=== PATIENT | female | born 1955 | race Caucasian/White ===

== ENCOUNTER 2020-05-10 12:00 | Inpatient (IN) | payer OTHER ==
[~2020-05-10] VITALS: Ht 172.7 cm; Wt 84.8 kg
[2020-05-11] MEDS ORDERED: OXYCODONE HCL10 MG PO ×3 (11:06→11:09)
[2020-05-11] MEDS ORDERED: SENNA PLUS TAB1 EACH PO (11:07)
[2020-05-11] MEDS ORDERED: CALCIUM + VITA1 EACH PO (11:12)
[2020-05-11] MEDS ORDERED: HYDRALAZINE 10M10 MG PO (11:13)
[2020-05-11] MEDS ORDERED: CARVEDILOL12.5 MG PO (11:15)
[2020-05-11] MEDS ORDERED: XANAX1 MG PO (11:17)
[2020-05-11] MEDS ORDERED: CARVEDILOL25 MG PO (11:18)
[2020-05-11] MEDS ORDERED: LOVENOX40 MG/0.4 SUBQ (11:20)
[2020-05-11] MEDS ORDERED: NEURONTIN 400M400 M2 PO (11:22)
[2020-05-11] MEDS ORDERED: BACITRACIN3.5 GM TOP (11:24)
[2020-05-11] MEDS ORDERED: MIRALAX119 GM PO (11:24)
[2020-05-11] MEDS ORDERED: KETAMINE IV (11:28)
[2020-05-11] MEDS ORDERED: ZOFRAN ODT4 MG PO (11:32)
[2020-05-11] MEDS ORDERED: NON-ASPIRIN PA500 MG PO (11:32)
[2020-05-11] MEDS ORDERED: VITAMIN C500 M2 PO (11:59)
[2020-05-11 12:00] VITALS: BP 112/71
[2020-05-11] MEDS ORDERED: VITAMIN D21250 MC1 PO (12:01)
[2020-05-11] MEDS ORDERED: MUCINEX600 MG PO (12:02)
[2020-05-11] MEDS ORDERED: IPRAT-ALBUT 0.5-3 ML INH (12:05)
[2020-05-11] MEDS ORDERED: LISINOPRIL2.5 MG PO (12:06)
[2020-05-11] MEDS ORDERED: MAGIC MOUTHWASH SWISH&SPIT (12:10)
--- NOTE | 2020-05-11 14:30 | NUR ---
chart review. cm notified by bedside nurse that pt would like to talk. cm visited with pt at bedside, cm wear own mask and goggles during visit. pt stated " i was told social work will be able to get letter i need faxed to court saying in am in hospital here for court, fax # [phone] sent to mohit [address] [place] [address]. intro to cm and team meeting. pt is a & o x 3 with some forgetfulness. she reports " before hospital lived alone in house but during covid i stayed [place] son in [place] apartment got stuck there. have cane if needed when back hurts. manage own medication and drive vehicle. no hh or rehab in past"/brian. will cont following as needed for dc needs.
[2020-05-11 15:58] LABS: URINE BILIRUBIN NEGATIVE (Negative); URINE BLOOD TRACE (Negative); URINE CLARITY CLEAR; URINE COLOR YELLOW; URINE GLUCOSE-RANDOM* NEGATIVE (Negative); URINE KETONES NEGATIVE (Negative); URINE PROTEIN (DIPSTICK) NEGATIVE (Negative)
[2020-05-11 16:03] LABS: URINE LEUKOCYTES-REFLEX 3+ (Negative); URINE NITRITE-REFLEX POSITIVE (Negative)
[2020-05-11 16:11] LABS: SQUAMOUS 0-3 Few /LPF (0-3)
[2020-05-11 16:12] LABS: BACTERIA-REFLEX >30 Many /HPF (None Seen); CASTS None Seen /LPF (None Seen); CRYSTALS None Seen /LPF (None Seen); URINE RBC None Seen /HPF (0-2); URINE WBC-REFLEX 6-15 Few /HPF (0-5)
--- NOTE | 2020-05-11 16:23 | NUR ---
PT ARRIVED AT 1345. ALERT AND ORIENTED *4 BUT FORGETFUL. VITALS REMAIN STABLE. C/O PAIN IN BLE, BUE, ORAL AND NASAL, PAIN MEDICATION ADMINISTERED NEEDED. PT HAS MILD BLE EXTREMITIES ELEVATED. ORAL SORES NOTED AND A BROKEN MOLAR THAT PT STATED THAT ITS BE SCRATCHING HER TONGUE. BRUISING NOTED ON LEFT SHOULDER, LEFT INNER ARM AND RIGHT SIDE OF THE FOREHEAD. PT VOIDING PER BEDPAN, URINE IS YELLOW WITH A STRONG FOUL ODOR, UA COLLECTED (SEE LABS FOR RESULTS). PT REPOSITIONED Q2H. ON BEDREST UNTIL THERAPY EVALUATION TOMORROW. Q1H VISUAL CHECKS. CALL LIGHT WITHIN REACH. FALL PRECAUTIONS IN PLACE
[2020-05-11 19:35] VITALS: BP 102/57
[2020-05-12 06:10] LABS: CALCIUM 8.7 mg/dL (8.5-10.1); CREATININE 0.9 mg/dL (0.6-1.0); POTASSIUM 4.3 mmol/L (3.5-5.1)
[2020-05-12 06:16] LABS: HEMATOCRIT 27.6 % (37.0-47.0); HEMOGLOBIN 9.3 gm/dL (12.0-15.0); MCH 31.8 pg (26.0-34.0); MCHC 33.6 g/dL (28.0-37.0); MCV 94.7 fL (80.0-100.0); RBC 2.91 mil/uL (4.20-5.00); RDW 13.7 % (10.5-14.5); WBC 9.8 thou/uL (4.0-11.0)
[2020-05-12 08:30] VITALS: BP 160/87
[2020-05-12 09:27] LABS: FOLIC ACID 3.8 ng/mL (8.6-58.9)
--- NOTE | 2020-05-12 13:53 | NUR ---
note for [facility] completed and faxed per pt request. copy provided for pt.
[2020-05-12 20:00] VITALS: BP 152/78
--- NOTE | 2020-05-13 03:12 | NUR ---
PATIENT ENCOURAGED TO MOVE IN BED, LIMITED BY PAIN. DECLINED OFFER TO ELEVATE LEGS THIS ALSO INCREASES PAIN. TRIED ICE TO KNEECAPS, NO NOTICEABLE DECREASE IN PAIN. TYLENOL ROUTINELY SCHEDULED PLUS PRN OXYCONTIN AND FLEXERIL GIVEN WITH PAIN STAYING AT 8 OR 9. PATIENT PLACED EXTERNAL CATHETER AFTER TUBING ATTACHED TO WALL SUCTION.
[2020-05-13 04:45] VITALS: BP 131/77
--- NOTE | 2020-05-13 13:44 | NUR ---
ASSUMED CARES AT 0700. PT AWAKE, ALERT AND ORIENTED*4. VITALS REMAIN STABLE. C/O PAIN IN BLE, BUE, ORAL AND NASAL, PAIN MANAGEMENT CONTINUED ORDERED. ABDOMEN IS FIRM AND DISTENDED, LAST BM 05/08, BS HYPOACTIVE. LAXATIVES AND STOOL SOFTERNORS ADMINISTERED. BRUISING REMAINS ON LEFT SHOULDER. PT VOIDING PER BEDPAN, EXTERNAL CATHETER DC'D THIS AM. UP WITH 1 SLIDEBOARD TRANSFERS AND TOLERATED WELL. PARTICIPATED WELL IN ALL THERAPIES. Q1H VISUAL CHECKS. CALL LIGHT WITHIN REACH. FALL PRECAUTIONS IN PLACE
[2020-05-13 20:19] VITALS: BP 127/79
--- NOTE | 2020-05-14 02:37 | NUR ---
EXTERNAL CATHETER OVERNIGHT PER PATIENT REQUEST. XANAX AND FLEXERIL WITH PRN PAIN MED AT HS AND PATIENT HAS BEEN SLEEPING MOST OF THE TIME SINCE THEN. CURIOUS ABOUT WHY HER HANDS HURT. DECLINING OFFERS TO ASSIST HER WITH REPOSITIONING. STATES SHE IS DOING WELL WITH SLIDE BOARD WITH THERAPY
[2020-05-14 08:00] VITALS: BP 139/76
--- NOTE | 2020-05-14 14:21 | NUR ---
ASSUMED CARES AT 0700. PT AWAKE, ALERT AND ORIENTED*4. C/O PAIN IN BLE AND BUE, ORAL AND NASAL. PAIN MEDICATIONS ADDMINISTERED NEEDED. VITALS REMAIN STABLE. PT UP WITH 1 MIN ASSIST AND SLIDEBOARD AND TOLERATED WELL. TOOK A SHOWER TODAY WITH OT WHICH SHE INITIATED AND STATED THAT IT FELT GOOD. BOWEL PROGRAM CONTINUED AND PT HAD A SMALL HARD BM, PASSING FLATUS. BELLY REMAINS FIRM AND DISTENDED, WILL CONTINUE TO MONITOR AND TREAT. PT EATING 100% OF HER MEALS AND TOLERATING WELL. DENIES N&V. Q1H VISUAL CHECKS. CALL LIGHT WITHIN REACH. FALL PRECAUTIONS IN PLACE
[2020-05-14 20:00] VITALS: BP 131/64
--- NOTE | 2020-05-15 00:44 | NUR ---
assumed care at approx 1900 evening 05/14. pt lying in bed with head of bed elevated at change of shift. pt alert and oriented x4, appropriate and cooperative. pt assisted with use of bedpan at hs voiding large amt urine. pt took hs meds with water tolerating well. pt appears to be sleeping soundly with hourly rounding checks. bed alarm on and call light in reach. will continue to monitor.
[2020-05-15 06:02] LABS: ABSOLUTE RETIC COUNT 0.1142 10^6/uL; OBSERVED RETIC COUNT 4.09 % (0.6-2.6)
[2020-05-15 06:11] LABS: HEMOGLOBIN 9.1 gm/dL (12.0-15.0); MCH 32.1 pg (26.0-34.0); MCHC 33.5 g/dL (28.0-37.0); MCV 95.7 fL (80.0-100.0); PLATELET COUNT 590 thou/uL (150-400); RBC 2.82 mil/uL (4.20-5.00); RDW 14.2 % (10.5-14.5); WBC 9.1 thou/uL (4.0-11.0)
[2020-05-15 06:23] LABS: % SATURATION 18 % (20-39); IRON 48 ug/dL (50-170); TIBC 260 ug/dL (250-450)
[2020-05-15 06:29] LABS: ALBUMIN 2.6 g/dL (3.4-5.0); CALCIUM 8.5 mg/dL (8.5-10.1); CREATININE 0.9 mg/dL (0.6-1.0); MAGNESIUM 2.3 mg/dL (1.8-2.4); PHOSPHORUS 4.7 mg/dL (2.5-4.9); TOTAL BILIRUBIN 0.2 mg/dL (0.2-1.0); TOTAL PROTEIN 5.7 g/dL (6.4-8.2)
[2020-05-15 09:45] VITALS: BP 129/72
[2020-05-15 10:23] LABS: ABSOLUTE NEUTROPHILS 5.1 thou/uL (1.4-8.2)
[2020-05-15 10:24] LABS: PLATELET ESTIMATE INCREASED
[2020-05-15 10:30] VITALS: BP 141/54
--- NOTE | 2020-05-15 16:36 | NUR ---
ASSUMED CARE AROUND 0700 PT A&O X 4, NO ACUTE DISTRESS DURING SHIFT. VSS, O2 ON RA. PT RECEIVED OXY-IR Q4H PRN FOR PAIN WITH SOME RELIEF. NON WEIGHT BEARING TO RLE CONTINUED. CONTINENT OF B&B USES BEDPAN. PT RESTING IN BED, CALL LIGHT WITHIN REACH, WILL CONTINUE TO MONITOR PER POC.
[2020-05-15 20:05] VITALS: BP 148/80
--- NOTE | 2020-05-16 00:35 | NUR ---
Assumed care of patient this pm shift. Patient is alert and oriented x4. Patient is in good spirits, calm and cooperative. Patient states her pain level is an 8 if she is perfectly still. Patient states that it is difficult to cough due to the pain in her ribs. Patient takes medications whole with fluids. Patients assessment shows clear breath sounds diminished in the bases, active bowel sounds, and s1 s2 heard with auscultation. Patient given medication to help her pain. We will continue to monitor per hospital protocol.
[2020-05-16 08:20] VITALS: BP 150/103
--- NOTE | 2020-05-16 16:34 | NUR ---
ASSUMED CARE AROUND 0700 PT A&O X 4 NO ACUTE DISTRESS DURING SHIFT. VSS O2 ON RA. PT CONTINUES TO HAVE PAIN RECEIVED PRN OXYIR WITH ADEQUATE RELIEF. NON WEIGHT BEARING TO RLE CONTINUED. CONTINENT OF B&B USES BEDPAN NO BM TODAY BUT ON AMAIRANI LAXATIVES. PT RESTING IN BED, CALL LIGHT WITHIN REACH, WILL CONTINUE TO MONITOR PER POC.
[2020-05-16 19:55] VITALS: BP 139/76
--- NOTE | 2020-05-17 03:26 | NUR ---
ASSUMED CARE AT APPROX 1900 EVENING 05/16. PT ALERT AND ORIENTED X4, APPROPRIATE AND COOPERATIVE. PT STATED SHE DID A LOT WITH THERAPY AND WAS VERY TIRED. PT TOOK HS MEDS WITH WATER TOLERATING WELL. PT REQUESTED TO HAVE EXTERNAL CATHETER AT NIGHTTIME. PT VOIDS LARGE AMT URINE. PT APPEARS TO BE SLEEPING SOUNDLY WITH HOURLY ROUNDING CHECKS. BED ALARM ON AND CALL LIGHT IN REACH. WILL CONTINUE TO MONITOR.
[2020-05-17 08:15] VITALS: BP 134/65
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
--- NOTE | 2020-05-17 12:50 | NUR ---
team meeting, recommendation: dc on , nurse only. will need dme drop arm bsc, transfer board and wheel chair.
--- NOTE | 2020-05-17 16:27 | NUR ---
1615 RESUMMED CARE FROM OVERNIGHT SHIFT THIS AM PATIENT IN ROOM WATCHING TV. PATIENT ATE BREAKFAST TOOK MEDICATION WITHOUT INCIDENCE; PATIENTS ABDOMEN SOFT ROUND BOWEL SOUNDS PRESENT. PATIENTS LUNGS CLEAR PATIENT WORKED WITH PT TODAY DID WELL WITH SLIDING BOARD TO TRANSFER TO BED. PATIENT COMPLAINED OF PAIN AND WAS GIVEN OXYCODONE 15 MG. DURING TEAM MEETING IT CAME TO OUR ATTENTION PATIENT MED SEEKS; AND HER AND HER SON WHO LIVES WITH HER GOES TO EMERGENCY ROOMS TO GET NARCOTICS. A HOT PACK WAS ORDERED FOR PATIENTS SHOULDER DONE BY PT. PATIENT COOPERATIVE UPON DISCHARGE PATIENT WILL HAVE W/C AND SLIDING BOARD TO HELP WITH TRANSFER AND HOME HEALTH NURSE. WILL CONTINUE TO MONITOR PATIENT FOR SAFETY AND MEDICAL ISSUES.
[2020-05-17 20:09] VITALS: BP 132/67
--- NOTE | 2020-05-18 02:02 | NUR ---
assumed care at approx 1900 evening 05/17. pt alert and oriented x4, pleasant and cooperative. pt stated she had a good day with therapy and feels like she is making progress with her therapy. pt using external catheter at night with large amt urine in canister. pt took hs meds with water tolerating well. pt appears to be sleeping soundly with hourly rounding checks. bed alarm on and call light in reach. will continue to monitor.
[2020-05-18 08:59] VITALS: BP 120/75
--- NOTE | 2020-05-18 11:10 | NUR ---
ASSUMED CARE AROUND 0700 PT A&O X 4 NO ACUTE DISTRESS DURING SHIFT VSS, O2 ON RA. PT CONTINUES TO HAVE GEN PAIN 7/10 RELIEVED WITH PRN OXY WITH ADEQUATE RELIEF. NON WEIGHT BEARING TO RLE CONTINUED. CONTINENT OF B&B, USES BEDPAN. PT SITTING IN BED, CALL LIGHT WITHIN REACH, WILL CONTINUE TO MONITOR PER POC.
[2020-05-18 19:35] VITALS: BP 134/72
--- NOTE | 2020-05-19 02:31 | NUR ---
TAKING PAIN PILLS EVERY 4 HOURS WELL ZANAFLEX SCHEDULED PLUS XANAX FOR ANXIETY AT HS. USING EXTERNAL CATHETER AT HS TO VOID LARGE AMOUNTS, DRINKS WATER AND A LITTLE SODA. SWISH AND SPIT MAGIC MOUTHWASH Q 6 HOURS WHILE AWAKE TO MINIMIZE FACIAL PAIN.
[2020-05-19 10:20] VITALS: BP 142/75
--- NOTE | 2020-05-19 15:59 | NUR ---
ASSUMED CARE OF PT AT 0720. PT IS A&OX4. IS ON ROOM AIR. IS STABLE. REPORTS PAIN IN BILAT KNEES, FACE & BACK THAT IS BEING MANAGED WITH PAIN MEDS & OTHER THERAPUETIC TECHNIQUES. PT IS UP WITH 1 ASSIST, SLIDE BOARD TRANSFER, & GB. FALL PRECAUTIONS & HOURLY ROUNDING CONTINUED THIS SHIFT. LABS & VITALS REVIEWED. WILL CONTINUE TO MONITOR. PT IS CURRENTLY WORKING WITH PHYSICAL THERAPY.
[2020-05-19 19:45] VITALS: BP 142/84
--- NOTE | 2020-05-20 00:41 | NUR ---
PT ALERT AND ORIENTED X 4. C/O PAIN IN KNEES AND LEFT SHOULDER. MEDICATED FOR PAIN ORDERED. EXTERNAL CATHETER INTACT. BED ALARM ON FOR SAFETY. PT APPEARS TO BE SLEEPING ON HOURLY ROUNDS.
[2020-05-20 06:20] LABS: ABSOLUTE NEUTROPHILS 4.1 thou/uL (1.4-8.2); BASOPHILS 0.4 % (0.0-2.0); EOSINOPHILS 3.2 % (0.0-3.0); HEMATOCRIT 29.7 % (37.0-47.0); HEMOGLOBIN 9.9 gm/dL (12.0-15.0); LYMPHOCYTES 31.6 % (24.0-44.0); MCH 31.9 pg (26.0-34.0); MCHC 33.3 g/dL (28.0-37.0); MCV 95.9 fL (80.0-100.0); MONOCYTES 8.2 % (1.0-8.0); PLATELET COUNT 525 thou/uL (150-400); POLYS 56.6 % (36.0-66.0); RDW 15.1 % (10.5-14.5); WBC 7.2 thou/uL (4.0-11.0)
[2020-05-20 06:42] LABS: ALBUMIN 2.8 g/dL (3.4-5.0); CALCIUM 8.7 mg/dL (8.5-10.1); CREATININE 0.8 mg/dL (0.6-1.0); MAGNESIUM 2.1 mg/dL (1.8-2.4); POTASSIUM 3.8 mmol/L (3.5-5.1); TOTAL BILIRUBIN 0.3 mg/dL (0.2-1.0); TOTAL PROTEIN 6.5 g/dL (6.4-8.2)
[2020-05-20 08:50] VITALS: BP 134/55
--- NOTE | 2020-05-20 12:11 | NUR ---
branden spoke with harsha with [facility], called to get auth for dme needs at dc. auth # [id number] for drop arm bedside commode. pt will also need manual wheel chair and transfer board. will cont following as needed for dc needs. provider plus notified.
--- NOTE | 2020-05-20 14:29 | NUR ---
ASSUMED CARES AT 0700. PT AWAKE, ALERT AND ORIENTED*4. C/O RACHANA LOWER EXTREMITY AND SHOULDER PAIN, PAIN MEDICATION AND MUSCLE RELAXER ADMINISTERED NEEDED. VITALS REMAIN STABLE. EXTERNAL FEMALE CATHETER DC'D THIS AM TO ALLOW PT TO PARTICIPATE IN THERAPY. PT REMAINS NWB RLE, UP WITH 1 CONTACT, SLIDEBOARD AND GB AND TOLERATED WELL. Q1H VISUAL CHECKS. CALL LIGHT WITHIN REACH. FALL PRECAUTIONS IN PLACE
[2020-05-20 19:30] VITALS: BP 136/73
--- NOTE | 2020-05-21 00:40 | NUR ---
PT ALERT AND ORIENTED X 4. EXTERNAL FEMALE CATH PATENT WITH CLEAR YELLOW URINE. PT C/O PAIN IN HER LEGS. OXYCODONE GIVEN ORDERED. XANAX GIVEN AT HS PER PT REQUEST FOR ANXIETY. BED ALARM ON FOR SAFETY. PT APPEARS TO BE SLEEPING ON HOURLY ROUNDS.
[2020-05-21 08:30] VITALS: BP 121/72
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
--- NOTE | 2020-05-21 15:24 | NUR ---
ASSUMED CARE AT 1330. PATIENT IS A&OX 4. C/O SHOULDER PAIN AND L.E. PAIN. MEDICATED WITH PRN PAIN MED AND MUSCLE RELAXANT. PATIENT USES SLIDE BOARD FOR TRANSFER FROM BED TO HER W/C. FALL AND SAFETY PROTOCOLS IN PLACE. CONTINUES TO PROGRESS SLOWLY TOWARDS D/C GOALS. WILL CONTINUE TO MONITER.
--- NOTE | 2020-05-21 19:11 | NUR ---
ASSUMED CARES AT 0700. PT AWAKE, ALERT AND ORIENTED*4. C/O PAIN IN BLE, BUE, PAIN MEDICATION ADMINISTERED ORDERED. VITALS REMAIN STABLE. PT UP WITH SLIDE BOARD, GB AND SBA AND TOLERATED WELL. Q1H VISUAL CHECK. CALL LIGHT WITHIN REACH. REPORT GIVEN TO ONCOMING RN AT 1400.
[2020-05-21 20:08] VITALS: BP 139/104
--- NOTE | 2020-05-22 01:29 | NUR ---
ASSUMED CARES AT 0700. PT AWAKE, ALERT AND ORIENTED*4. VITALS ARE STABLE. PT C/O BLE PAIN, PAIN MEDICATION ADMINISTERED NEEDED. XANAX ADMIN. AT BEDTIME R/T ANXIETY. PT UP WITH SLIDEBOARD AND SBA, TRANSFERED SELF TO CHAIR/ TOILET AND TOLERATED WELL. Q1H VISUAL CHECKS. CALL LIGHT WITHIN REACH. FALL PRECAUTIONS IN PLACE
[2020-05-22 02:00] VITALS: BP 152/86
[2020-05-22 09:45] VITALS: BP 107/67
--- NOTE | 2020-05-22 13:01 | NUR ---
Assumed pt care at 7am.Pt in bed alert and oriented x4.Assessment completed. vss.Pt in bed for breakfast and lunch.Took meds and well tolerated.Pt assisted with transfered to with sliding board and to bathroom.Good endurance noted. Pt c/o back and shoulder pain rated 7/10.Oxycodone po given with relief.No further c/o at present.Will continue to monitor.
[2020-05-22 19:15] VITALS: BP 133/89
--- NOTE | 2020-05-23 00:30 | NUR ---
PT ALERT AND ORIENTED X 4. TRANSFERS TO W/C AND THEN TO TOILET WITH SLIDE BOARD AND ASSIST X 1. PT C/O LEFT SHOULDER AND BACK PAIN. OXYCODONE GIVEN ORDERED. REFUSED SENNA AND COLACE AT HS. XANAX GIVEN AT HS PER PT REQUEST FOR ANXIETY. PT REPORTS RASH ON LEGS. HAS SMALL BROWN SPOTS ON BOTH LEGS. WILL REPORT TO DAY NURSE TO HAVE DR LOOK AT THEM. PT BELIEVES SPOTS ON HER LEGS ARE CANCER. BED ALARM ON FOR SAFETY. PT APPEARS TO BE SLEEPING ON HOURLY ROUNDS.
[2020-05-23 07:10] VITALS: BP 137/82
--- NOTE | 2020-05-23 08:15 | EKG ---
[facility] [place] [address] [place] [address] ELECTROCARDIOGRAM REPORT Name: MEENA MARIE Room #: 501-A ADM IN M.R.#: [id number] Admission: 05/11/20 Attend Phys: Jerry Bella MD Discharge: Date of : 59 Report #: [id number] THIS REPORT FOR: cc: FAM - Family physician unknown FAM - Family physician unknown Alexys Padron MD [facility] ~ THIS REPORT FOR: //name// [facility] ED Test Date: 2020-05-22 Test Time: 02:09:47 Pat Name: MEENA KAPLAN Department: Room: [facility] A Gender: F Base Brander: ARELIS : 1955 Requested By: Gilma Andrea Order Number: [id number] MD: Alexys Padron Measurements Intervals [place] Rate: 93 P: 66 TX: 196 QRS: 23 QRSD: 92 T: 42 QT: 378 QTc: 471 Interpretive Statements Sinus rhythm Poor R wave progression No previous ECG available for comparison Electronically Signed On 05-23-2020 8:15:12 CDT by Alexys Padron [email or web address] <ELECTRONICALLY SIGNED> By: Alexys Padron MD, FAC [id number] Alexys Padron MD, [facility] /EPI
--- NOTE | 2020-05-23 13:23 | NUR ---
ASSUMED CARES AT 0700. PT AWAKE, ALERT AND ORIENTED*4. VITALS REMAIN STABLE. PT C/O PAIN IN BLE AND LEFT SHOULDER, PAIN MEDICATION ADMINISTERED NEEDED. PT PARTICIPATED WELL IN THERAPIES AND TOLERATED WELL. DC PLANS IN PROGRESS FOR TOMORROW. TRANSFERS WITH SLIDE BOARD, NWB RLE AND TOLERATES WELL. Q1H VISUAL CHECKS. CALL LIGHT WITHIN REACH. FALL PRECAUTIONS IN PLACE
--- NOTE | 2020-05-23 13:53 | NUR ---
cm visited with pt at bedside, cm cont to wear own face mask and goggles during visit. re-education on safe net packet provided, [facility] and [facility] to get assist with medication refills and est a primary pcp. call number on medicaid card and they can help set up pcp as well re- education on [facility]h nurse on " i don't care who it is with and might not even need on for long time, muriel or [facility]"/brian. ot here to work with pt, she got phone call, cm stepped out during call. referral to be sent to [facility] and or [facility].
[2020-05-23 14:23] VITALS: BP 137/82
[2020-05-23 19:04] VITALS: BP 141/75
--- NOTE | 2020-05-24 03:14 | NUR ---
ASSUMED CARE AT APPROX 1900 EVENING 05/23. PT ALERT AND ORIENTED X4, APPROPRIATE AND COOPERATIVE. PT STATED SHE WAS LOOKING FORWARD TO BEING DISCHARGED. PT UP TO BATHROOM TO VOID VIA W/C TOLERATING WELL. PT GIVEN PAIN MEDS AND HS MEDS ORDERED. PT APPEARS TO BE SLEEPING SOUNDLY WITH HOURLY ROUNDING CHECKS. BED ALARM ON AND CALL LIGHT IN REACH. WILL CONTINUE TO MONITOR.
[2020-05-24 07:50] VITALS: BP 147/86
--- NOTE | 2020-05-24 07:58 | NUR ---
cm sent referral to [facility] nurse only for dc today. provider plus to bring, drop arm bsc, wheel chair and transfer board. will cont following as needed for dc needs.
[2020-05-24] MEDS ORDERED: LASIX 20 MG TAB20 MG PO ×2 (08:34→09:03)
[2020-05-24] MEDS ORDERED: REQUIP 0.25 M0.25 MG PO ×2 (08:34→09:03)
[2020-05-24] MEDS ORDERED: VITAMIN D21250 MC1 PO ×2 (08:34→09:03)
[2020-05-24] MEDS ORDERED: VITAMIN B-12500 MCG PO ×2 (08:34→09:03)
[2020-05-24] MEDS ORDERED: ZANAFLEX4 MG PO ×2 (08:34→09:03)
[2020-05-24] MEDS ORDERED: IRON325 PO ×2 (08:34→09:03)
[2020-05-24] MEDS ORDERED: VENTOLIN HFA 1818 GM INH ×2 (08:36→09:03)
[2020-05-24] MEDS ORDERED: ASA81BEC PO ×2 (08:36→09:03)
[2020-05-24] MEDS ORDERED: HYDRALAZINE 10M10 MG PO (09:03)
[2020-05-24] MEDS ORDERED: NEURONTIN 400M400 M2 PO (09:03)
[2020-05-24] MEDS ORDERED: LISINOPRIL2.5 MG PO (09:03)
[2020-05-24] MEDS ORDERED: NON-ASPIRIN PA500 MG PO (09:03)
[2020-05-24] MEDS ORDERED: SENNA PLUS TAB1 EACH PO (09:03)
[2020-05-24] MEDS ORDERED: COREG6.25 MG PO (09:03)
[2020-05-24 11:45] VITALS: BP 137/82
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
--- NOTE | 2020-05-24 14:47 | NUR ---
FAXED REFERRAL TO [facility] SPOKE WITH JIMMY IN INTAKE SHE RECEIVED REFERRAL AND WILL ACCEPT FOR [address] ESCALANTE TO FOLLOW FOR HH. FAXED DC ORDERS/SUMMARY RECEIVED CONFIRMATION.
== END 2020-05-24 12:00 | disposition home health service (06) | DRG 563 ==
PROVIDERS: Internal Medicine; Nurse Practitioner; ADMIT Physical Medicine & Rehabilitation; ATTEND Physical Medicine & Rehabilitation
DX: S82.142A Displaced bicondylar fracture of left tibia, initial encounter for closed fracture (principal); S82.141A Displaced bicondylar fracture of right tibia, initial encounter for closed fracture; N39.0 Urinary tract infection, site not specified; E87.1 Hypo-osmolality and hyponatremia; S02.2XXA Fracture of nasal bones, initial encounter for closed fracture; S42.002A Fracture of unspecified part of left clavicle, initial encounter for closed fracture; F43.23 Adjustment disorder with mixed anxiety and depressed mood; G31.84 Mild cognitive impairment of uncertain or unknown etiology; B96.20 Unspecified Escherichia coli [E. coli] as the cause of diseases classified elsewhere; K59.00 Constipation, unspecified; E55.9 Vitamin D deficiency, unspecified; E53.8 Deficiency of other specified B group vitamins; F17.200 Nicotine dependence, unspecified, uncomplicated; D50.9 Iron deficiency anemia, unspecified; D47.3 Essential (hemorrhagic) thrombocythemia; G89.29 Other chronic pain; I25.10 Atherosclerotic heart disease of native coronary artery without angina pectoris; I10 Essential (primary) hypertension; Z87.820 Personal history of traumatic brain injury; Z87.11 Personal history of peptic ulcer disease; V49.88XA Car occupant (driver) (passenger) injured in other specified transport accidents, initial encounter; Y93.89 Activity, other specified; Y92.89 Other specified places as the place of occurrence of the external cause; Y99.8 Other external cause status; I25.2 Old myocardial infarction; Z88.0 Allergy status to penicillin; Z86.718 Personal history of other venous thrombosis and embolism; Z79.01 Long term (current) use of anticoagulants
CPT/HCPCS: 10112